=== PATIENT | male | born 1940 | race Caucasian/White ===

== ENCOUNTER 2018-07-27 11:40 | Inpatient (IN) | payer MEDICARE, OTHER ==
[~2018-07-27] VITALS: Ht 182.9 cm; Wt 76.3 kg
[2018-07-27] MEDS ORDERED: METHOCARBAMOL 750 MG TABLET ONE (12:40)
[2018-07-27] MEDS ORDERED: HYDROcodone/APAP 5/325 TABLET ONE (12:40)
[2018-07-27] MEDS ORDERED: METHOCARBAMOL 750 MG TABLET PO ONE (13:00)
[2018-07-27] MEDS ORDERED: PLEASE ENTER ALLERGIES MC SCH (13:00)
[2018-07-27] MEDS ORDERED: HYDROcodone/APAP 5/325 TABLET PO ONE (13:00)
[2018-07-27] MEDS ORDERED: HYDROmorphone 2 MG/ML, 1ML ONE (13:49)
[2018-07-27] MEDS ORDERED: HYDROmorphone 2 MG/ML, 1ML IM ONE (14:00)
[2018-07-27] MEDS ORDERED: DIAZEPAM 5 MG TABLET PO ONE (15:00)
[2018-07-27] MEDS ORDERED: DIAZEPAM 5 MG TABLET ONE (15:33)
[2018-07-27] MEDS ORDERED: SODIUM CHLORIDE FLUSH 10ML SYR IVF ONE (16:00)
[2018-07-27 16:04] LABS: BASOPHILS # (AUTO) 0.03 x10^3/uL (0-0.1); BASOPHILS % (AUTO) 0 % (0-1); EOSINOPHILS # (AUTO) 0.03 x10^3/uL (0-0.4); EOSINOPHILS % (AUTO) 0 % (1-7); LYMPHOCYTES # (AUTO) 0.93 x10^3/uL (1-3.4); LYMPHOCYTES % (AUTO) 12 % (22-44); MD NO; MEAN CORPUSCULAR HEMOGLOBIN 30.9 pg (27.5-34.5); MEAN CORPUSCULAR VOLUME 90.8 fL (81-97); MEAN PLATELET VOLUME 8.4 fL (7.4-10.4); MONOCYTES # (AUTO) 0.13 x10^3/uL (0.2-0.8); MONOCYTES % (AUTO) 2 % (2-9); NEUTROPHILS # (AUTO) 6.66 x10^3/uL (1.8-6.8); NEUTROPHILS % (AUTO) 86 % (42-75); PLATELET COUNT 239 x10^3/uL (130-400); RED BLOOD COUNT 4.81 x10^6/uL (4.38-5.82); RED CELL DISTRIBUTION WIDTH 13.6 % (9.4-14.8)
[2018-07-27 16:12] LABS: ALBUMIN 3.7 g/dL (3.4-5.0); ANION GAP 8 mmol/L (5-15); CALCIUM 8.7 mg/dL (8.5-10.1); CHLORIDE 108 mmol/L (98-107); CREATININE 0.89 mg/dL (0.7-1.3)
[2018-07-27 16:13] LABS: MICROSCOPIC NOT IND
[2018-07-27 16:15] LABS: CULTURE INDICATED? NO
[2018-07-27] MEDS ORDERED: LABETALOL 5MG/ML, 20ML IVPush PRN (17:00)
[2018-07-27] MEDS ORDERED: METHOCARBAMOL 500 MG TABLET PO PRN (17:00)
[2018-07-27] MEDS ORDERED: ONDANSETRON ODT 4 MG PO PRN (17:00)
[2018-07-27] MEDS ORDERED: BISACODYL 10 MG SUPP PR PRN (17:00)
[2018-07-27] MEDS ORDERED: POLYETHYLENE GLYCOL 17 GM PACKET PO PRN (17:00)
[2018-07-27] MEDS ORDERED: ONDANSETRON 2MG/ML, 2ML IVPush PRN (17:00)
[2018-07-27] MEDS ORDERED: PROMETHAZINE 25 MG/ML, 1ML IM PRN (17:00)
[2018-07-27] MEDS ORDERED: GABAPENTIN 100 MG CAPSULE PO PRN (17:00)
[2018-07-27] MEDS ORDERED: ACETAMINOPHEN 325 MG TABLET PO PRN (17:00)
[2018-07-27] MEDS ORDERED: MORPHINE SULFATE 4 MG/ML, 1ML IVPush PRN (17:00)
[2018-07-27] MEDS ORDERED: hydrALAzine 20 MG/ML, 1ML IVPush PRN (17:00)
[2018-07-27] MEDS ORDERED: DOCUSATE 100 MG CAPSULE PO PRN (17:00)
[2018-07-27 17:33] LABS: FREE T4 (FREE THYROXINE) 1.12 ng/dL (0.76-1.46); HEMOGLOBIN A1C 5.8 % (4.2-6.3); THYROID STIMULATING HORMONE 1.91 mIU/L (0.358-3.740)
[2018-07-27 19:44] VITALS: BP 134/81
[2018-07-27 20:00] VITALS: BP 134/81
[2018-07-27] MEDS: OXYcodone IR 5MG TABLET PO PRN (22:46)
[2018-07-27] MEDS: HEPARIN 5,000 UNITS/ML, 1ML SQ SCH (22:46)
[2018-07-27] MEDS ORDERED: ASPI-191 PO (23:49)
[2018-07-27] MEDS ORDERED: PRAV20TA PO (23:49)
[2018-07-28 00:17] VITALS: BP 151/93
[2018-07-28 01:13] VITALS: BP 161/83
[2018-07-28] MEDS: OXYcodone IR 5MG TABLET PO PRN ×4 (03:25→18:16)
[2018-07-28 05:33] LABS: BASOPHILS # (AUTO) 0.02 x10^3/uL (0-0.1); BASOPHILS % (AUTO) 0 % (0-1); EOSINOPHILS # (AUTO) 0.01 x10^3/uL (0-0.4); EOSINOPHILS % (AUTO) 0 % (1-7); LYMPHOCYTES # (AUTO) 1.61 x10^3/uL (1-3.4); LYMPHOCYTES % (AUTO) 18 % (22-44); MD NO; MEAN CORPUSCULAR HEMOGLOBIN 31.1 pg (27.5-34.5); MEAN CORPUSCULAR HGB CONC 34.7 g/dL (33.2-36.2); MEAN CORPUSCULAR VOLUME 89.8 fL (81-97); MEAN PLATELET VOLUME 8.6 fL (7.4-10.4); MONOCYTES # (AUTO) 0.77 x10^3/uL (0.2-0.8); MONOCYTES % (AUTO) 9 % (2-9); NEUTROPHILS # (AUTO) 6.61 x10^3/uL (1.8-6.8); NEUTROPHILS % (AUTO) 73 % (42-75); PLATELET COUNT 246 x10^3/uL (130-400); RED BLOOD COUNT 4.61 x10^6/uL (4.38-5.82); RED CELL DISTRIBUTION WIDTH 13.5 % (9.4-14.8)
[2018-07-28 05:42] LABS: ALBUMIN 3.2 g/dL (3.4-5.0); ANION GAP 9 mmol/L (5-15); CALCIUM 8.8 mg/dL (8.5-10.1); CHLORIDE 109 mmol/L (98-107)
[2018-07-28 05:47] LABS: ALANINE AMINOTRANSFERASE 26 U/L (12-78); ALKALINE PHOSPHATASE 74 U/L (45-117); BILIRUBIN,TOTAL 0.8 mg/dL (0.2-1.0); CHOL/HDL RATIO 4.8; CHOLESTEROL, TOTAL 181 mg/dL (140-239); CREATININE 0.86 mg/dL (0.7-1.3); HDL CHOL % 21 % (26-37); HDL CHOLESTEROL (DIRECT) 38 mg/dL (40-60); LDL CHOLESTEROL,CALCULATED 96 mg/dL (54-169); LDL/HDL RATIO 2.5 (0.5-3.0); TOTAL PROTEIN 6.8 g/dL (6.4-8.2); TRIGLYCERIDES 234 mg/dL (50-200); VLDL CHOLESTEROL 47 mg/dL (0-25)
[2018-07-28 08:00] VITALS: BP 150/90
[2018-07-28] MEDS: HEPARIN 5,000 UNITS/ML, 1ML SQ SCH ×2 (08:11→15:55)
[2018-07-28] MEDS ORDERED: PRAVASTATIN 20 MG TABLET PO SCH (09:00)
[2018-07-28 15:30] VITALS: BP 152/83
[2018-07-28] MEDS: DEXAMETHASONE 4 MG/ML, 1ML IVPush SCH ×2 (15:55→19:58)
[2018-07-28] MEDS: GABAPENTIN 100 MG CAPSULE PO SCH ×2 (15:55→19:59)
[2018-07-28 20:32] VITALS: BP 165/83
[2018-07-29 00:26] VITALS: BP 169/86
[2018-07-29] MEDS: HEPARIN 5,000 UNITS/ML, 1ML SQ SCH ×2 (02:41→11:05)
[2018-07-29] MEDS: DEXAMETHASONE 4 MG/ML, 1ML IVPush SCH ×2 (02:41→08:48)
[2018-07-29 07:28] VITALS: BP 172/86
[2018-07-29] MEDS ORDERED: ASPIRIN 81 MG TABLET EC PO SCH (08:00)
[2018-07-29] MEDS: GABAPENTIN 100 MG CAPSULE PO SCH (08:48)
[2018-07-29 12:10] VITALS: BP 143/79
[2018-07-29] MEDS ORDERED: DEXA4TAB66 PO (13:24)
[2018-07-29] MEDS ORDERED: METH500T7 PO (13:24)
[2018-07-29] MEDS ORDERED: DEXAMETHASONE 4 MG TABLET PO SCH (15:00)
== END 2018-07-29 15:33 | disposition home or self-care (01) | DRG 552 ==
LOC: ED 15:18 → 3NE 16:36
PROVIDERS: ADMIT Internal Medicine; ATTEND Internal Medicine
DX: M48.07 Spinal stenosis, lumbosacral region (principal); M51.36 Other intervertebral disc degeneration, lumbar region; D18.00 Hemangioma unspecified site; E78.5 Hyperlipidemia, unspecified; Z83.6 Family history of other diseases of the respiratory system
CPT/HCPCS: 36415; 72148; 78306; 80048; 80053; 80061; 81003; 82040; 83036; 83735; 84153; 84439; 84443; 85025; 96372; 99285; G0378; J1100; J1170; J1644; A9503; C9898; G0103; J7512